=== PATIENT | female | born 1970 | race Caucasian/White ===

== ENCOUNTER 2016-11-21 03:17 | Emergency (ER) | payer MEDICAID, OTHER ==
[2016-11-21 03:23] VITALS: RESP 18; TEMP 97.4
[2016-11-21] MEDS ORDERED: KETOROLAC TROMETHAMINE 30 MG/ML SOL IM ONE (03:54)
[2016-11-21] MEDS ORDERED: KETOROLAC TROMETHAMINE 30 MG/ML SOL ONE (03:57)
[2016-11-21 04:02] VITALS: BP 146/89; PULSE 86; O2SAT 99
== END 2016-11-21 04:16 | disposition home or self-care (01) | DRG 552 ==
LOC: ED 03:17
DX: M54.5 Low back pain (principal)
CPT/HCPCS: 96372; 99282; 99283; J1885